=== PATIENT | female | born 1985 | race Caucasian/White ===

== ENCOUNTER 2025-09-18 07:31 | Outpatient (CLI) | payer OTHER ==
[~2025-09-18] VITALS: Ht 170.2 cm; Wt 111.3 kg
[~2025-09-18 07:31] MED LIST: ALBUTEROL SULFATE 2.5 MG/0.5 ML INH CONCENTRATE NEB SOLN INH PRN; EPINEPHrine INJ 1 MG/ML 1ML AMP IM PRN; diphenhydrAMINE 50 MG/ML VIAL IV PRN
[2025-09-18 08:10] VITALS: BP 151/91; O2SAT 98
[2025-09-18] MEDS: IRON SUCROSE 500 MG in NS 250 ML IV ONE (08:50)
[2025-09-18 10:15] VITALS: BP 155/88; O2SAT 98
[2025-09-18 11:15] VITALS: BP 126/64; O2SAT 97
[2025-09-18 12:15] VITALS: BP 143/90; O2SAT 97
[2025-09-18 13:15] VITALS: BP 167/82; O2SAT 98
== END 2025-09-18 13:15 | disposition home or self-care (01) ==
LOC: M INFU 07:31
PROVIDERS: ATTEND Internal Medicine
DX: D50.9 Iron deficiency anemia, unspecified (principal)
CPT/HCPCS: 96365; 96366; J1756